=== PATIENT | male | born 1940 | race Caucasian/White ===

== ENCOUNTER 2024-02-26 08:03 | Outpatient (AMB) | payer MEDICARE, SELFPAY ==
--- NOTE | 2024-02-26 08:02 | AM.OFFWIN_ITS ---
Intake Vital Signs 02/26/24 08:04 Height 5 ft 9 in Weight 178 lb 2 oz BMI 26.3 BP 138/86 Blood Pressure Location Rt brachial Position Sitting Pulse 88 Pulse Source Pulse Oximeter Temp 97.8 F Temp Source Oral Pulse Oximetry (%) 98 Oxygen Delivery Method Room Air Intake Visit Reasons: EP asthma flare up (lobby) Intake Note: Pt presents to the office today for c/o asthma flare up. Pt states he is having a very hard time breathing, wheezing. Allergies No Known Allergies Allergy (Verified 02/26/24 08:02) HPI HPI Comments History of Present Illness Details Patient is an 83yo M who presents with asthma He is on buspirone and a nasal spray Last 2-3 weeks worsening asthma +tight and wheeze Using flovent which helps temporarily Sees Dr Hernandez for PCP but unable to get in to be seen Minimal cough; some phlegm No fever or chills, congestion + fatigue Worse with laying flat States some leg edema No chest pain or hx CHF PFSH Social History (Updated 02/26/24 @ 08:10 by Nayeli Puckett [facility]) Alcohol intake: never Patient Tobacco Use Status: Never used Tobacco Review of Systems Const Denies chills and Denies fever(s) ENT Denies otalgia, Denies nasal discharge, Denies sore throat and Denies throat swelling Card Denies chest pain, Reports leg edema, Reports dyspnea and Reports dyspnea on exertion Resp Denies change in phlegm color, Denies chest congestion, Reports cough, Denies pain with cough, Reports dyspnea, Reports dyspnea on exertion and Reports wheezing GI Reports abdominal pain (occasional. sees GI. Had MRI 2 weeks ago. + colostomy) Aller/Immun Denies throat swelling and Reports wheezing Physical Exam Vital Signs: Last Vital Signs Temp 97.8 F 02/26/24 08:04 Pulse 88 02/26/24 08:04 BP 138/86 02/26/24 08:04 Pulse Ox 98 02/26/24 08:04 Oxygen Delivery Method Room Air 02/26/24 08:04 BMI result Body Mass Index 26.3 General: Non-toxic, NAD. Speaking full sentences. Skin: Warm dry throughout Eye: EOMI HENT: + hearing aids present. Respiratory: + wheeze upper airway. No rales or rhonchi present. No tachypnea. Cardiac: RRR. No murmur. , 1+ pitting edema bilaterally. Neurology: No aphasia or facial droop. Gait without abnormality Psych: Good mood and affect Assessment & Plan Assessment & Plan (1) Wheeze: Code(s): R06.2 - Wheezing Plan: Patient seen and evaluated. Concern for CHF. Chest xray ordered. I view imagine and saw some pulmonary congestion without infiltrate Discussed my interpretation with pt and his He is stable on room air and in no respiratory distress ProAir refill given. Will continue flovent CBC, BMP and BNP ordered and he is going next door to obtain He sees Dr Morgan with [facility] PCP and is aware he needs to follow up with him We discussed s/s such as worsening SOB or CP that warrants ED evaluation Patient gave verbal understanding and had no additional questions or concerns at time of discharge All questions answered Orders: Orders XR chest 2V Today R06.2 - Wheezing Complete Blood Count Auto Diff Today R06.2 - Wheezing B Type Natriuretic Peptide Today R06.2 - Wheezing Basic Metabolic Panel Today R06.2 - Wheezing Medications: New prednisone 40 mg (2 x 20 mg) PO DAILY 8 tabs 0RF albuterol sulfate 90 mcg/actuation 1 inh inhalation QID PRN 8.5 grams 0RF shortness of breath or wheezing Coding Level of Care Code New Pt Level 4 (76223) Diagnoses Wheeze R06.2
[2024-02-26 08:04] VITALS: BP 138/86; PULSE 88; TEMP 36.6; O2SAT 98; BMI 26.3
== END 2024-02-26 09:29 | disposition home or self-care (01) ==
PROVIDERS: PCP Internal Medicine; Visit Provider Physician Assistant
DX: R06.2 Wheezing (principal)
CPT/HCPCS: 99204

== ENCOUNTER 2024-02-26 08:27 | Outpatient (REF) | payer MEDICARE, SELFPAY ==
--- NOTE | ~2024-02-26 | XR_ITS ---
EXAMINATION: XR CHEST CLINICAL INFORMATION: Wheezing and difficulty breathing COMPARISON: None available. TECHNIQUE: 2 views of the chest were obtained. FINDINGS: The lungs do appear to be hyperaerated with blunting of the costophrenic sulci but this appears chronic. Underlying fibrotic changes are noted. High-resolution chest CT would be of value in this particular case. Heart size normal but the pulmonary arterial structures appear prominent possibly related to underlying pulmonary arterial hypertension. No evidence for pulmonary venous distention. XR/XR chest 2V IMPRESSION: Chronic changes noted. High-resolution chest CT may be of value in this case.
[2024-02-26 10:37] LABS: MANUAL DIFF FLAG NO
[2024-02-26 10:49] LABS: Basophils Percent Auto 0.4 % (0-2); Eosinophils Absolute Auto 0.1 X10*3/uL (0.0-0.4); Eosinophils Percent Auto 2.7 % (0-4); Hematocrit 24.7 % (42.0-52.0); Hemoglobin 7.1 g/dl (14.0-18.0); Imm Gran Abs Auto 0.01 X10*3/uL (0.00-0.03); Imm Gran Pct Auto 0.2 % (0.0-0.4); Lymphocytes Absolute Auto 0.6 X10*3/uL (1.2-4.9); Lymphocytes Percent Auto 10.7 % (20-40); Mean Corpuscular HGB Conc 28.7 g/dl (31.0-36.0); Mean Corpuscular Hemoglobin 20.8 pg (27.0-33.0); Mean Corpuscular Volume 72.2 fL (80.0-98.0); Mean Platelet Volume 10.6 fL (9.4-12.4); Monocytes Absolute Auto 0.4 X10*3/uL (0.1-1.2); Monocytes Percent Auto 7.3 % (2-11); Neutrophils Absolute Auto 4.1 x10*3/uL (2.0-8.3); Neutrophils Percent Auto 78.7 % (45-73); Platelet Count 150 X10*3/uL (160-400); Red Blood Count 3.42 X10*6/uL (4.60-5.80); Red Cell Distribution Width 15.4 % (11.0-16.0); White Blood Count 5.2 X10*3/uL (4.8-10.8)
[2024-02-26 11:15] LABS: B Type Natriuretic Peptide 286 pg/mL (<100)
[2024-02-26 11:23] LABS: Anion Gap 15 (12-20); Blood Urea Nitrogen 13 mg/dL (9-16); Carbon Dioxide 23 mmol/L (22-29); Chloride 106 mmol/L (96-108); Estimated Glomerular Filt Rate > 60; Glucose Random 165 mg/dL (60-115); Potassium 3.8 mmol/L (3.3-5.1); Sodium 140 mmol/L (135-145)
== END 2024-02-26 08:28 | disposition home or self-care (01) ==
LOC: HO.HMGCX 08:27
PROVIDERS: Visit Provider Physician Assistant
DX: Z13.89 Encounter for screening for other disorder (principal)
CPT/HCPCS: 36415; 71046; 80048; 83880; 85025

== ENCOUNTER 2024-02-26 14:01 | Emergency (ER) | payer MEDICARE, SELFPAY ==
[2024-02-26] VITALS (9 sets, daily range): BP systolic 112–148; BP diastolic 69–96; PULSE 81–125; RESP 16–27; TEMP 36.4–37.4; O2SAT 94–98; BMI 26.1
--- NOTE | ~2024-02-26 | CT_ITS ---
EXAMINATION: CT THORAX WITHOUT CONTRAST CLINICAL INFORMATION: Questionable malignancy COMPARISON: Chest x-ray 02/26/2024 TECHNIQUE: Multiple axial images were obtained through the chest without intravenous contrast. Images were evaluated on independent dedicated 3-D workstation and 3-D images were reconstructed with concurrent radiologist supervision and subsequently interpreted. This CT examination was performed using dose optimization techniques as appropriate, variously including the following: *Automated exposure control *Adjustment of mA and/or kV according to patient size (this includes techniques or standardized protocols for targeted exams where dose is matched to indication/reason for exam; i.e. extremities or head) *Use of iterative reconstruction technique DLP: 288 mGy-cm FINDINGS: THYROID GLAND: The visualized thyroid gland is normal. LYMPH NODES: No supraclavicular, axillary, mediastinal or hilar lymphadenopathy is identified. CARDIOVASCULAR: Heart: Normal in size. Coronary artery calcifications present. No aortic aneurysm. The great vessels of the thorax are normal in course. AIRWAYS: The trachea and central bronchi are normal. Bronchial wall thickening. LUNGS: Subtle subpleural interlobular septal thickening, most pronounced at the apices and at the bases. No honeycombing. Small geographic area of groundglass within the posterior segment of the right lower lobe, adjacent to the small pleural effusion. Atelectatic changes are also seen in the left lower lobe. PLEURA: Small right and trace left pleural effusion. Thin linear calcifications of the posteromedial pleurae. UPPER ABDOMEN: Partially imaged pneumobilia. SOFT TISSUES/MUSCULOSKELETAL: Degenerative changes of the lower cervical spine and thoracic. No acute fractures or focal osseous lesions. CT/CT chest wo IV con IMPRESSION: 1. No acute pathology or findings of malignancy of the chest. 2. Small right and trace left pleural effusion with associated pleural calcifications. Question exposure to asbestos. 3. Subtle areas of apical and basilar interlobular septal thickening, nonspecific for pulmonary fibrosis. Fleischner guidelines were followed.
--- NOTE | 2024-02-26 15:25 | ED.GENADULT ---
HPI - General Adult General Chief complaint: Recheck/Abnormal Lab/Rx Stated complaint: transfusion ? Time Seen by Provider: 02/26/24 17:43 History of Present Illness HPI narrative: 83 y/o M patient; PMH HLD, HTN, GERD, asthma, pAF on verapamil; presents from clinic with concern for anemia requiring transfusion. The patient states for the last 2 - 3 weeks he has had increased shortness of breath associated with a mild cough that is non-productive. The patient denies any known melena or hematochezia, denies hematuria. He denies: chest pain, syncope, nausea/vomiting, abdominal pain. Related Data Home Medications ?Medication ?Instructions ?Recorded ?Confirmed atorvastatin 40 mg tablet 40 mg PO DAILY 05/31/21 06/04/21 buspirone 10 mg tablet 10 mg PO BID 05/31/21 06/04/21 lancets 28 gauge #100 ea 05/31/21 06/04/21 mupirocin 2 % topical ointment 1 appl topical BID-TID 05/31/21 06/04/21 omeprazole 40 mg capsule,delayed 40 mg PO DAILY 05/31/21 06/04/21 release sertraline 100 mg tablet 100 mg PO DAILY 05/31/21 06/04/21 verapamil 240 mg tablet,extended 240 mg PO DAILY 05/31/21 06/04/21 release fluticasone propionate 44 2 puff inhalation BID 02/26/24 mcg/actuation HFA aerosol inhaler Previous Rx's ?Medication ?Instructions ?Recorded albuterol sulfate 90 mcg/actuation 1 inh inhalation QID PRN shortness 02/26/24 aerosol inhaler of breath or wheezing #8.5 grams prednisone 20 mg tablet 40 mg (2 x 20 mg) PO DAILY #8 tabs 02/26/24 ferrous sulfate 325 mg (65 mg 325 mg PO BID 90 days #180 tabs 02/27/24 iron) tablet Allergies Allergy/AdvReac Type Severity Reaction Status Date / Time Tetanus Vaccines and Toxoid Allergy Anaphylaxis Verified 02/26/24 15:30 Review of Systems Review of Systems: Yes all other systems are reviewed and are negative PMFSH Past Medical History Attestation statement: The following information was validated with the patient. Source: old records reviewed Social History Social History Alcohol intake: never Patient Tobacco Use Status: Never used Tobacco Smoked in Last 30 Days: No Use of substances other than those prescribed or required for medical reasons: No Advance Directives: No Advance Directives Information Provided: No Physical Exam ED Vital Signs: Vital Signs - 24 hr 02/26/24 15:24 02/26/24 17:55 02/26/24 18:30 Temperature 97.5 F 98.9 F Pulse Rate 81 114 H 103 H Respiratory Rate 18 18 16 Blood Pressure 142/69 H 112/86 Pulse Oximetry 97 98 Oxygen Delivery Method Room Air Room Air 02/26/24 19:32 02/26/24 20:55 02/26/24 20:58 Temperature 98.0 F 98.1 F 98.5 F Pulse Rate 106 H 119 H 120 H Respiratory Rate 16 19 27 H Blood Pressure 119/77 145/88 H 145/88 H Pulse Oximetry 96 94 Oxygen Delivery Method Room Air Room Air 02/26/24 21:21 02/26/24 21:22 02/26/24 22:13 Temperature 99.2 F 99.2 F 99.3 F Pulse Rate 125 H 125 H 109 H Respiratory Rate 17 17 17 Blood Pressure 117/96 H 117/96 H 148/85 H Pulse Oximetry 98 Oxygen Delivery Method Room Air BMI result Body Mass Index 26.1 Patient is afebrile and hemodynamically stable. Const General: cooperative and no acute distress HENMT Head: Yes normal to inspection and Yes atraumatic Eyes General: appearance normal, both eyes and all related structures Pupils: Equal, round and reactive pupils present EOM: EOMs intact bilaterally Neck Neck: Yes normal visual inspection and Yes full ROM Chest Chest palpation & inspection: normal inspection of the chest and normal palpation of entire chest wall Resp Effort & Inspection: normal respiratory effort, able to speak in complete sentences and no respiratory distress Auscultation: clear to auscultation bilaterally Cardio Rate: tachycardic Rhythm: abnormal rhythm Peripheral pulses: Peripheral pulses 2+ throughout GI Inspection: Yes normal to inspection Palpation (GI): Soft to palpation, not firm, nontender, no guarding and not rigid Auscultation: normal bowel sounds Neuro Cranial nerves: Yes Equal, round and reactive pupils present Course Course Course Narrative: RME:?83 yo male, hx asthma, HDL here requesting blood transfusion after having labs drawn at walk-in clinic this morning for asthma exacerbation. H&H noted to be 7.1/24.7. endorses SOB. denies any pain at present. Denies headache, dizziness, hematemesis, melena, hematochezia, bright red blood per rectum. +1 pitting edema b/l. no crackles. upper airway wheezes. labs obtained this morning. liver panel, type and screen ordered. Full HPI, ROS and PE to be performed by the primary ED provider. Reevaluation(s) Reevaluation #1: Patient is afebrile and hemodynamically stable. EKG with evidence of atrial fibrillation without RVR. Will provide 1 unit pRBC and order anemia labs. Reviewed CXR no evidence of significant fluid overload. Suspect anemia contributing to atrial fibrillation and asthma/COPD exacerbation. Received prescription for steroid in urgent care but has not received first dose. Will provide Solu-Medrol 125mg IV now. ED Bronchodilator protocal ordered. CT Chest with chronic changes without evidence of malignancy. Plan: Transition care to Dr. Crawford pending transfusion, re-evaluation. Condition: Stable 00:53 I assumed care of this patient from my colleague, Dr. Day at 21:00 hours. Patient had no difficulty with his transfusion he did have a slight elevation in his temperature which was treated with Tylenol 975 mg orally. Patient has a microcytic anemia which is most likely an iron deficiency anemia. This is most likely caused by GI blood loss versus malabsorption of iron (patient does have a colostomy but can not tell me how much colon was resected) Patient was discharged home with a prescription for ferrous sulfate 325 mg, 1 pill twice a day for 3 months. 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 Medications Administered Discontinued Medications Generic Name Dose Route Start Last Admin Trade Name Freq PRN Reason Stop Dose Admin Acetaminophen 975 mg 02/26/24 22:24 02/26/24 22:37 Acetaminophen 325 Mg Tablet PO 02/26/24 22:25 975 mg ONCE STA Administration Albuterol Sulfate 2.5 mg/ 0 mg 02/26/24 18:26 02/26/24 18:30 Albuterol/Ipratropium 3 ml INHALE 02/26/24 18:27 1 dose ONCE ONE Administration Sodium Chloride 100 mls @ 100 mls/hr 02/26/24 18:02 02/26/24 21:13 Ns IV 02/26/24 19:01 100 mls/hr ONCE ONE Administration Methylprednisolone Sodium Succinate 125 mg 02/26/24 18:15 02/26/24 18:47 Methylprednisolone Sod Succ 125 Mg/2 Ml Vial IVPUSH 02/26/24 18:16 125 mg ONCE ONE Administration Medical Decision Making Lab Data 02/26/24 17:51 Labs: Lab Results 02/26/24 02/26/24 02/26/24 Range/Units 16:51 17:51 18:32 WBC 5.2 (4.8-10.8) X10*3/uL RBC 3.53 L (4.60-5.80) X10*6/uL Hgb 7.4 L (14.0-18.0) g/dl Hct 25.3 L (42.0-52.0) % MCV 71.7 L (80.0-98.0) fL MCH 21.0 L (27.0-33.0) pg MCHC 29.2 L (31.0-36.0) g/dl RDW 15.7 (11.0-16.0) % Plt Count 163 (160-400) X10*3/uL MPV 10.1 (9.4-12.4) fL Immature Gran % (Auto) 0.4 (0.0-0.4) % Neut % (Auto) 68.2 (45-73) % Lymph % (Auto) 18.0 L (20-40) % Gillespie % (Auto) 8.4 (2-11) % Eos % (Auto) 4.4 H (0-4) % Baso % (Auto) 0.6 (0-2) % Lymph # (Auto) 0.9 L (1.2-4.9) X10*3/uL Gillespie # (Auto) 0.4 (0.1-1.2) X10*3/uL Eos # (Auto) 0.2 (0.0-0.4) X10*3/uL Baso # (Auto) 0.0 (0.0-0.2) X10*3/uL Abs Immat Gran (auto) 0.02 (0.00-0.03) X10*3/uL Absolute Neuts (auto) 3.6 (2.0-8.3) x10*3/uL Absolute Nucleated RBC 0.000 (0.0-0.012) X10*3/uL Nucleated RBC % (auto) 0.0 (0.0-0.2) /100WBC Fibrinogen 477 (259-690) MG/DL Iron 11 L (45-160) mcg/dL TIBC 338 (228-428) mcg/dL % Saturation 3 L (15-50) % Unsat Iron Binding 327 ug/dL Ferritin 18 L (20-250) ng/mL Total Bilirubin 0.8 (0.0-1.0) mg/dL Direct Bilirubin 0.3 (0.0-0.5) mg/dL AST 24 (5-37) U/L ALT 40 (0-40) U/L Alkaline Phosphatase 59 (39-117) U/L Troponin I High Sens 19.6 (<3.5-35.0) ng/L B-Natriuretic Peptide 455 H (<100) pg/mL Total Protein 6.8 (6.5-8.0) g/dL Albumin 4.2 (3.5-5.0) g/dL Vitamin B12 427 (200-900) pg/mL Folate 13.1 (> or = 4.0) ng/mL Blood Type O Negative Antibody Screen NEGATIVE Crossmatch See Detail Radiology Impression Discussion of test interpretation with radiology: I have reviewed the radiologist's reading. Radiologist Impression: EXAMINATION: CT THORAX WITHOUT CONTRAST CLINICAL INFORMATION: Questionable malignancy COMPARISON: Chest x-ray 02/26/2024 TECHNIQUE: Multiple axial images were obtained through the chest without intravenous contrast. Images were evaluated on independent dedicated 3-D workstation and 3-D images were reconstructed with concurrent radiologist supervision and subsequently interpreted. This CT examination was performed using dose optimization techniques as appropriate, variously including the following: *Automated exposure control *Adjustment of mA and/or kV according to patient size (this includes techniques or standardized protocols for targeted exams where dose is matched to indication/reason for exam; i.e. extremities or head) *Use of iterative reconstruction technique DLP: 288 mGy-cm FINDINGS: THYROID GLAND: The visualized thyroid gland is normal. LYMPH NODES: No supraclavicular, axillary, mediastinal or hilar lymphadenopathy is identified. CARDIOVASCULAR: Heart: Normal in size. Coronary artery calcifications present. No aortic aneurysm. The great vessels of the thorax are normal in course. AIRWAYS: The trachea and central bronchi are normal. Bronchial wall thickening. LUNGS: Subtle subpleural interlobular septal thickening, most pronounced at the apices and at the bases. No honeycombing. Small geographic area of groundglass within the posterior segment of the right lower lobe, adjacent to the small pleural effusion. Atelectatic changes are also seen in the left lower lobe. PLEURA: Small right and trace left pleural effusion. Thin linear calcifications of the posteromedial pleurae. UPPER ABDOMEN: Partially imaged pneumobilia. SOFT TISSUES/MUSCULOSKELETAL: Degenerative changes of the lower cervical spine and thoracic. No acute fractures or focal osseous lesions. CT/CT chest wo IV con IMPRESSION: 1. No acute pathology or findings of malignancy of the chest. 2. Small right and trace left pleural effusion with associated pleural calcifications. Question exposure to asbestos. 3. Subtle areas of apical and basilar interlobular septal thickening, nonspecific for pulmonary fibrosis. Discharge Plan Discharge Clinical Impression: COPD (chronic obstructive pulmonary disease), Anemia, Atrial fibrillation Patient Disposition: Still a Patient Additional Instructions: Your blood work today revealed a microcytic anemia with a hemoglobin of 7.4 (normal is 14-18) and hematocrit of 25.3 (normal is 42-52). This is most likely caused by an iron deficient anemia which suggests you may be losing blood in your GI tract or you may not be absorbing iron through your GI tract.. I am starting you on an iron supplement called ferrous sulfate 325 mg pills, 1 pill twice a day for 3 months to help restore your iron supply in your body. You will need to follow-up with your primary care provider to further determine the cause of your anemia and you may need to see your GI doctor as well. Your chest x-ray was abnormal but the CT scan of your chest without IV contrast did not reveal any specific abnormalities to be concerned about. Continue taking your other medications as prescribed. Follow-up with your doctor in 2 days. Please return to the emergency department if your symptoms get worse or if you develop any symptoms that are concerning to you. XR chest 2V IMPRESSION: Chronic changes noted. High-resolution chest CT may be of value in this case. Dictated By: Rodrick Lobo MD CT chest wo IV con IMPRESSION: 1. No acute pathology or findings of malignancy of the chest. 2. Small right and trace left pleural effusion with associated pleural calcifications. Question exposure to asbestos. 3. Subtle areas of apical and basilar interlobular septal thickening, nonspecific for pulmonary fibrosis. Fleischner guidelines were followed. Dictated By: Morgan Doll Prescriptions: New ferrous sulfate 325 mg (65 mg iron) tablet 325 mg PO BID 90 Days Qty: 180 0RF No Action mupirocin 2 % ointment 1 appl topical BID-TID verapamil 240 mg tablet extended release 240 mg PO DAILY omeprazole 40 mg capsule,delayed release(DR/EC) 40 mg PO DAILY sertraline 100 mg tablet 100 mg PO DAILY atorvastatin 40 mg tablet 40 mg PO DAILY (DME) lancets 28 gauge misc See Rx Instructions topical BID Qty: 100 Rx Instructions: As directed buspirone 10 mg tablet 10 mg PO BID fluticasone propionate 44 mcg/actuation HFA aerosol inhaler 2 puff inhalation BID Rx Instructions: administer with spacer albuterol sulfate 90 mcg/actuation HFA aerosol inhaler 1 inh inhalation QID PRN (Reason: shortness of breath or wheezing) Qty: 8.5 0RF prednisone 20 mg tablet 40 mg PO DAILY Qty: 8 0RF Print Language: Burkinan
[2024-02-26 17:13] LABS: Alanine Aminotransferase 40 U/L (0-40); Albumin Level 4.2 g/dL (3.5-5.0); Alkaline Phosphatase 59 U/L (39-117); Aspartate Amino Transferase 24 U/L (5-37); Bilirubin Direct 0.3 mg/dL (0.0-0.5); Bilirubin Total 0.8 mg/dL (0.0-1.0); Total Protein 6.8 g/dL (6.5-8.0)
--- NOTE | 2024-02-26 17:45 | ECG_ITS ---
Test Reason : ABNORMAL LABS Blood Pressure : / mmHG Vent. Rate : 108 BPM Atrial Rate : 108 BPM P-R Int : 176 ms QRS Dur : 084 ms QT Int : 360 ms P-R-T Axes : 054 006 018 degrees QTc Int : 482 ms Sinus tachycardia with Premature atrial complexes Nonspecific ST and T wave abnormality Abnormal ECG No previous ECGs available Referred By: Johanne Day Electronically Signed By:Gianfranco Nichole
[2024-02-26 17:55] LABS: MANUAL DIFF FLAG NO
[2024-02-26 17:58] LABS: Basophils Percent Auto 0.6 % (0-2); Eosinophils Absolute Auto 0.2 X10*3/uL (0.0-0.4); Eosinophils Percent Auto 4.4 % (0-4); Hematocrit 25.3 % (42.0-52.0); Hemoglobin 7.4 g/dl (14.0-18.0); Imm Gran Abs Auto 0.02 X10*3/uL (0.00-0.03); Imm Gran Pct Auto 0.4 % (0.0-0.4); Lymphocytes Absolute Auto 0.9 X10*3/uL (1.2-4.9); Mean Corpuscular HGB Conc 29.2 g/dl (31.0-36.0); Mean Corpuscular Volume 71.7 fL (80.0-98.0); Mean Platelet Volume 10.1 fL (9.4-12.4); Monocytes Absolute Auto 0.4 X10*3/uL (0.1-1.2); Monocytes Percent Auto 8.4 % (2-11); Neutrophils Absolute Auto 3.6 x10*3/uL (2.0-8.3); Neutrophils Percent Auto 68.2 % (45-73); Platelet Count 163 X10*3/uL (160-400); Red Blood Count 3.53 X10*6/uL (4.60-5.80); Red Cell Distribution Width 15.7 % (11.0-16.0); White Blood Count 5.2 X10*3/uL (4.8-10.8)
--- NOTE | 2024-02-26 18:10 | PC.NURSE ---
Pt presents to ED from home. Pt reports he has been having a cough for weeks, reports he went to his doctor today and they took labs. Doctor called him and said his H/H is low and he needs transfusion. Pt is alert and oriented, breathing even and unlabored while at rest, skin slightly pale. Pt denies any CP, SOB, N/V/D, fevers, blood in urine or stool. Pt denies any abnormal bleeding. Pt placed on bedside illuminating engineer, sinus tachycardia. IV established in right AC 18G.
[2024-02-26 18:21] LABS: Troponin-I High Sensitivity 19.6 ng/L (<3.5-35.0)
[2024-02-26] MEDS: Albuterol Sulfate 2.5 MG, Albuterol/Iprat 2.5/0.5MG 3 ML 3 ML INHALE (18:30)
[2024-02-26 18:31] LABS: B Type Natriuretic Peptide 455 pg/mL (<100)
[2024-02-26 18:34] LABS: Iron 11 mcg/dL (45-160); Percent Iron Saturation 3 % (15-50); Total Iron Binding Capacity 338 mcg/dL (228-428); Unsaturated Iron Binding 327 ug/dL
[2024-02-26 18:42] LABS: Fibrinogen 477 MG/DL (259-690)
[2024-02-26 18:47] LABS: Ferritin 18 ng/mL (20-250)
[2024-02-26] MEDS: methylPREDNISolone Sod Succ 125 MG/2 ML VIAL IVPUSH (18:47)
[2024-02-26 19:29] LABS: Folate 13.1 ng/mL (> or = 4.0); Vitamin B12 427 pg/mL (200-900)
--- NOTE | 2024-02-26 20:55 | PC.NURSE ---
Asummed care of pt at 1900. PT alert and oriented. at bedside. PT tachy and desating especially when speaking. Pt on caridac monitor SN with frequent pvcs noted. Izaiah Suero currently getting blood. pLna is for transfusion. CT scan negative. Provider at bedside with plan for pt to go to PCP for follow up
[2024-02-26] MEDS: Acetaminophen 325 MG TABLET 975 MG PO (22:37)
--- NOTE | 2024-02-26 22:42 | PC.NURSE ---
notified provider of elevated temp. administered medications as per MAR
[2024-02-27 00:35] VITALS: BP 173/105; PULSE 99; RESP 18; TEMP 37
[2024-02-27 01:01] VITALS: BP 129/50; PULSE 68; RESP 16; TEMP 36.9; O2SAT 95
[2024-02-28 14:49] LABS: Transferrin 311 mg/dL (188-341)
== END 2024-02-27 01:15 | disposition home or self-care (01) ==
PROVIDERS: Emergency Medicine; Physician Assistant Medical; Emergency Provider Emergency Medicine Emergency Medical Services; PCP Internal Medicine
DX: J44.9 Chronic obstructive pulmonary disease, unspecified (principal); D64.9 Anemia, unspecified; I48.91 Unspecified atrial fibrillation; M54.6 Pain in thoracic spine; R06.02 Shortness of breath; R05.9 Cough, unspecified; Z79.899 Other long term (current) drug therapy
CPT/HCPCS: 36415; 36430; 71046; 71250; 80048; 80076; 82607; 82728; 82746; 83540; 83880; 84466; 84484; 85025; 85384; 86850; 86900; 86901; 86923; 93005; 94640; 96374; 99285; J2919; J2930; P9016

== ENCOUNTER → 2024-02-26 17:45 | Outpatient (BNV) | payer MEDICARE, SELFPAY | PROVIDERS: Emergency Provider Emergency Medicine Emergency Medical Services; PCP Internal Medicine; Visit Provider Internal Medicine Cardiovascular Disease | DX: R94.31 Abnormal electrocardiogram [ECG] [EKG] (principal); R00.0 Tachycardia, unspecified | CPT/HCPCS: 93010 ==